=== PATIENT | female | born 1965 | race Caucasian/White ===

== ENCOUNTER → 2017-01-23 | Outpatient (CLI) | payer OTHER ==
[~2017-01-23] MED LIST: ASPIRIN EC325 M1 PO; ESTRADIOL 1 MG T1 M1 PO; NOHOMEMEDICATIONS; UNICOMPLEX M TA1 TA1 PO
== END ==
LOC: RAD 12:59
DX: Z12.31 Encounter for screening mammogram for malignant neoplasm of breast (principal)

== ENCOUNTER → 2017-06-09 | Outpatient (CLI) | payer OTHER | LOC: RAD 13:12 | DX: M79.641 Pain in right hand (principal) ==

== ENCOUNTER → 2018-01-23 | Outpatient (CLI) | payer OTHER | LOC: RAD 07:48 | DX: Z12.31 Encounter for screening mammogram for malignant neoplasm of breast (principal) ==

== ENCOUNTER → 2019-01-08 | Outpatient (CLI) | payer OTHER ==
[~2019-01-08] MED LIST changes: +FLUTICASONE PRO16 GM NASAL
== END ==
LOC: RAD 01:58
DX: Z12.31 Encounter for screening mammogram for malignant neoplasm of breast (principal)

== ENCOUNTER → 2019-01-11 | Outpatient (CLI) | payer OTHER ==
[~2019-01-11] VITALS: Ht 154.9 cm; Wt 56.2 kg
== END | disposition home or self-care (01) ==
LOC: GI
DX: Z12.11 Encounter for screening for malignant neoplasm of colon (principal); K64.8 Other hemorrhoids; I48.91 Unspecified atrial fibrillation; F17.210 Nicotine dependence, cigarettes, uncomplicated; Z85.828 Personal history of other malignant neoplasm of skin; Z90.711 Acquired absence of uterus with remaining cervical stump; Z98.890 Other specified postprocedural states; Z79.899 Other long term (current) drug therapy; Z79.01 Long term (current) use of anticoagulants; Z87.01 Personal history of pneumonia (recurrent)
CPT/HCPCS: 62110; 62900

== ENCOUNTER → 2019-05-05 | Outpatient (CLI) | payer OTHER | LOC: ULTRA 08:11 | DX: I15.0 Renovascular hypertension (principal) ==

== ENCOUNTER → 2019-05-21 | Outpatient (CLI) | payer OTHER | LOC: NUC 07:28 | DX: M85.89 Other specified disorders of bone density and structure, multiple sites (principal); Z78.0 Asymptomatic menopausal state ==

== ENCOUNTER → 2020-01-19 | Outpatient (CLI) | payer OTHER | LOC: RAD 08:40 | PROVIDERS: ATTEND Family Medicine | DX: Z12.31 Encounter for screening mammogram for malignant neoplasm of breast (principal); N64.89 Other specified disorders of breast ==

== ENCOUNTER → 2020-01-24 | Outpatient (CLI) | payer OTHER | LOC: CAT 07:46 → MRI 09:43 | PROVIDERS: ATTEND Family Medicine | DX: H57.12 Ocular pain, left eye (principal); R51.9 Headache, unspecified ==

== ENCOUNTER → 2020-02-02 | Outpatient (CLI) | payer OTHER | LOC: BC 14:36 | PROVIDERS: ATTEND Radiology Diagnostic Radiology | DX: R92.1 Mammographic calcification found on diagnostic imaging of breast (principal) ==

== ENCOUNTER → 2020-02-22 | Outpatient (CLI) | payer OTHER ==
--- NOTE | 2020-02-24 18:07 | PATH ---
[facility] [address] [place] [address] PATHOLOGY RPT PROCEDURE Name: ODELL VO Leonela Room #: REG [facility]..#: [id number] Admission: 02/22/20 Date of : 69 Discharge: Report #: [id number] Path Case #: [id number] [facility] Accession Number: [id number] . 01 Material submitted: . breast - RIGHT BREAST MEDIAL CENTRAL CALCIFICATIONS. Modifiers: right, medial, central . 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 - Background of proliferative fibrocystic changes including focal fibroadenomatoid changes. - Negative for invasive carcinoma. (IUV:winterizer; 02/24/2020) MBR 02/24/2020 1802 Local . 02 Comment: Co-review: Dr. Ramsey Blackburn. . Findings of this case are telephoned to miss Jennings in our breast center at 10:52 a.m. on 02/24/2020. . Block A1 is sent for ER and IL, the results of this will be reported in an addendum to follow. . (IUV:winterizer; 02/24/2020) . 02 Electronically signed: . Kathia Evans MD, Pathologist NPI- [id number] . 01 Gross description: . The specimen is received in formalin, labeled "Odell Vo". No source is listed on the container. The source is listed on the requisition as, "right medial central". Received are multiple needle cores of fibrofatty tissue measuring 4.3 x 3.8 x 0.7 cm in aggregate dimensions. Also received within the container is a plastic cassette containing multiple needle cores measuring 1.8 x 1.2 x 0.3 cm in aggregate dimensions. The suspect tissue is transferred to cassette A1, and the remainder of the specimen is submitted in cassettes A2 through A5. The cold ischemic time is 3 minutes. The total formalin fixation time is 27 hours and 57 minutes. (CAA; 02/23/2020) QAC/QAC 02/23/2020 1049 Local . 02 [place] [address] PATHOLOGY RPT PROCEDURE Name: ODELL VO Room #: REG CLI Lisa#: [id number] Admission: 02/22/20 Date of : 69 Discharge: Report #: [id number] Path Case #: [id number] Pathologist provided ICD-10: D05.11, N60.11 . 02 CPT . 302350 Specimen Comment: A courtesy copy of this report has been sent to [phone] Specimen Comment: [phone] Specimen Comment: Report sent to ,DR COSTA / DR RADFORD Performed at: [address], [place] [id number] MD Pedro Sepulveda MD Phone: [phone] Performed at: [address] [id number] MD Kathia Evans MD Phone: [phone]
== END | disposition home or self-care (01) ==
LOC: BC 02-15 09:40
PROVIDERS: ATTEND Radiology Diagnostic Radiology
DX: D05.11 Intraductal carcinoma in situ of right breast (principal); N60.11 Diffuse cystic mastopathy of right breast; R92.1 Mammographic calcification found on diagnostic imaging of breast; Z79.899 Other long term (current) drug therapy

== ENCOUNTER → 2020-04-14 | Outpatient (CLI) | payer OTHER | LOC: MRI 09:45 | PROVIDERS: ATTEND Radiology Radiation Oncology | DX: C50.911 Malignant neoplasm of unspecified site of right female breast (principal); Z98.890 Other specified postprocedural states ==

== ENCOUNTER → 2020-04-14 | Outpatient (CLI) | payer OTHER | LOC: LAB 11:08 | PROVIDERS: ATTEND Family Medicine | DX: Z20.828 Contact with and (suspected) exposure to other viral communicable diseases (principal) ==

== ENCOUNTER → 2020-05-30 | Outpatient (CLI) | payer OTHER | LOC: LAB 14:56 | PROVIDERS: ATTEND Internal Medicine | DX: Z00.00 Encounter for general adult medical examination without abnormal findings (principal) ==

== ENCOUNTER → 2020-06-07 | Outpatient (CLI) | payer OTHER ==
[2020-06-07 10:12] LABS: ABSOLUTE NEUTROPHILS 2.7 thou/uL (1.4-8.2); BASOPHILS 0.6 % (0.0-2.0); EOSINOPHILS 2.1 % (0.0-3.0); HEMATOCRIT 37.7 % (37.0-47.0); HEMOGLOBIN 12.6 gm/dL (12.0-15.0); LYMPHOCYTES 22.8 % (24.0-44.0); MCHC 33.4 g/dL (28.0-37.0); MONOCYTES 7.7 % (1.0-8.0); PLATELET COUNT 266 thou/uL (150-400); POLYS 66.8 % (36.0-66.0); RDW 13.3 % (10.5-14.5)
[2020-06-07 10:31] LABS: ALBUMIN 3.8 g/dL (3.4-5.0); ANION GAP 7 mmol/L (7-16); BUN 11 mg/dL (7-18); CALCIUM 9.3 mg/dL (8.5-10.1); CHLORIDE 103 mmol/L (98-107); CHOLESTEROL 243 mg/dL (<200); CO2 29 mmol/L (21-32); CREATININE 1.1 mg/dL (0.6-1.0); GLUCOSE 139 mg/dL (74-106); HDL CHOLESTEROL 124 mg/dL (>40); LDL CHOLESTEROL 108 mg/dL (<100); POTASSIUM 3.9 mmol/L (3.5-5.1); SGOT 25 U/L (15-37); SGPT 40 U/L (30-65); SODIUM 139 mmol/L (136-145); TOTAL BILIRUBIN 0.5 mg/dL (0.2-1.0); TOTAL PROTEIN 6.7 g/dL (6.4-8.2); TRIGLYCERIDE 57 mg/dL (<150); VLDL 11 mg/dL (<40)
== END ==
LOC: LAB 09:10
PROVIDERS: ATTEND Family Medicine
DX: Z00.00 Encounter for general adult medical examination without abnormal findings (principal)

== ENCOUNTER → 2020-06-16 | Outpatient (CLI) | payer OTHER | LOC: ULTRA 12:25 | PROVIDERS: ATTEND Surgery | DX: M79.18 Myalgia, other site (principal) ==

== ENCOUNTER → 2020-08-01 | Outpatient (CLI) | payer OTHER | LOC: ULTRA 14:38 | PROVIDERS: ATTEND Nurse Practitioner | DX: R19.03 Right lower quadrant abdominal swelling, mass and lump (principal); M71.20 Synovial cyst of popliteal space [Baker], unspecified knee ==

== ENCOUNTER → 2020-11-14 | Outpatient (CLI) | payer OTHER | LOC: MRI 07:44 → BC 13:34 | PROVIDERS: ATTEND Surgery | DX: C50.911 Malignant neoplasm of unspecified site of right female breast (principal); N64.89 Other specified disorders of breast ==

== ENCOUNTER → 2020-12-18 | Outpatient (CLI) | payer OTHER ==
[2020-12-18 12:11] LABS: BASOPHILS 0.5 % (0.0-2.0); EOSINOPHILS 1.1 % (0.0-3.0); HEMOGLOBIN 13.1 gm/dL (12.0-15.0); LYMPHOCYTES 28.6 % (24.0-44.0); MCH 34.9 pg (26.0-34.0); MCHC 34.4 g/dL (28.0-37.0); MCV 101.3 fL (80.0-100.0); PLATELET COUNT 253 thou/uL (150-400); POLYS 61.8 % (36.0-66.0); RBC 3.75 mil/uL (4.20-5.00); RDW 12.6 % (10.5-14.5); WBC 4.8 thou/uL (4.0-11.0)
[2020-12-18 12:15] LABS: POTASSIUM 4.2 mmol/L (3.5-5.1); TOTAL BILIRUBIN 0.8 mg/dL (0.2-1.0); TOTAL PROTEIN 6.9 g/dL (6.4-8.2)
== END ==
LOC: LAB 11:14
PROVIDERS: ATTEND Family Medicine
DX: I49.8 Other specified cardiac arrhythmias (principal)

== ENCOUNTER → 2021-01-16 | Outpatient (CLI) | payer OTHER | LOC: RAD 08:18 | PROVIDERS: ATTEND Internal Medicine | DX: C50.111 Malignant neoplasm of central portion of right female breast (principal); N63.10 Unspecified lump in the right breast, unspecified quadrant; R92.8 Other abnormal and inconclusive findings on diagnostic imaging of breast ==

== ENCOUNTER → 2021-02-06 | Outpatient (CLI) | payer OTHER ==
[~2021-02-06] MED LIST changes: +ASA81BEC PO; +CALCIUM 600 +1 EA11 PO; +LISINOPRIL10 MG PO; +NOLVADEX 10MG T10 M1 PO; +TOPROL XL50 MG PO; +TRAZODONE HCL50 MG PO; +VITAMIN D-40010 MCG PO; +XANAX 0.5 MG0.5 M1 PO
== END ==
LOC: SJCVCIMAG 07:23
PROVIDERS: ATTEND Internal Medicine Cardiovascular Disease
DX: I34.0 Nonrheumatic mitral (valve) insufficiency (principal); I49.3 Ventricular premature depolarization; I42.0 Dilated cardiomyopathy; I10 Essential (primary) hypertension; I25.10 Atherosclerotic heart disease of native coronary artery without angina pectoris; Z85.3 Personal history of malignant neoplasm of breast; Z87.891 Personal history of nicotine dependence; Z72.89 Other problems related to lifestyle; Z79.899 Other long term (current) drug therapy; Z82.49 Family history of ischemic heart disease and other diseases of the circulatory system

== ENCOUNTER → 2021-02-09 | Outpatient (CLI) | payer OTHER ==
[~2021-02-09] MED LIST changes: -ASA81BEC PO; -CALCIUM 600 +1 EA11 PO; -LISINOPRIL10 MG PO; -NOLVADEX 10MG T10 M1 PO; -TOPROL XL50 MG PO; -TRAZODONE HCL50 MG PO; -VITAMIN D-40010 MCG PO; -XANAX 0.5 MG0.5 M1 PO
== END ==
LOC: CAT 07:05
PROVIDERS: ATTEND Internal Medicine Cardiovascular Disease
DX: Z13.6 Encounter for screening for cardiovascular disorders (principal); E78.00 Pure hypercholesterolemia, unspecified; I25.10 Atherosclerotic heart disease of native coronary artery without angina pectoris

== ENCOUNTER → 2021-02-16 | Outpatient (CLI) | payer OTHER ==
[~2021-02-16] VITALS: Ht 154.9 cm; Wt 57.3 kg
[~2021-02-16] MED LIST changes: +ASA81BEC PO; +CALCIUM 600 +1 EA11 PO; +LISINOPRIL10 MG PO; +NOLVADEX 10MG T10 M1 PO; +TOPROL XL50 MG PO; +TRAZODONE HCL50 MG PO; +VITAMIN D-40010 MCG PO; +XANAX 0.5 MG0.5 M1 PO
[2021-02-16 07:39] VITALS: BP 129/66
[2021-02-16 08:00] LABS: HEMATOCRIT 36.5 % (37.0-47.0); HEMOGLOBIN 12.1 gm/dL (12.0-15.0); MCH 33.3 pg (26.0-34.0); MCHC 33.1 g/dL (28.0-37.0); MCV 100.7 fL (80.0-100.0); RBC 3.63 mil/uL (4.20-5.00); WBC 4.1 thou/uL (4.0-11.0)
[2021-02-16 08:04] LABS: CALCIUM 8.5 mg/dL (8.5-10.1); POTASSIUM 4.2 mmol/L (3.5-5.1)
--- NOTE | 2021-02-16 08:05 | EKG ---
[place] [address] [facility] [place] [address] ELECTROCARDIOGRAM REPORT Name: AUGUST VO JIHAN Room #: REG [facility]#: [id number] Admission: 02/16/21 Attend Phys: Humberto Gresham MD, Discharge: Date of : 69 Report #: [id number] [facility] Test Date: 2021-02-16 Test Time: 07:40:11 Pat Name: AUGUST VO Department: Room: Gender: F Supervisor [employer]: FSCHWALBE : 1965 Requested By: Humberto Gresham Order Number: [id number] MD: Sy Torres Measurements Intervals [place] Rate: 46 P: 42 NM: 142 QRS: -15 QRSD: 107 T: -65 QT: 546 QTc: 478 Interpretive Statements Sinus bradycardia Borderline left axis deviation Abnormal T, probable ischemia, inferior leads Compared to ECG 06/16/2016 05:48:10 T-wave abnormality now present Electronically Signed On 02-16-2021 8:05:09 CHILD CARE AIDE by Sy Torres [email or web address] <ELECTRONICALLY SIGNED> By: Sy Torres MD, [facility] 02/16/21 08 9 Sy Torres MD, [facility] /EPI
--- NOTE | 2021-02-16 16:50 | CATHLAB ---
[facility] [place] [address] [address] [place] [address] INVASIVE PROCEDURE REPORT Name: AUGUST VO JIHAN Room #: REG [facility] ZhouWilli#: [id number] Admission: 02/16/21 Attend Phys: Humberto Gresham MD, Discharge: Date of : 69 Report #: [id number] THIS REPORT FOR: cc: Stanley Gardner MD, Neal A. MD Mancuso, Gerald M. MD [facility] ~ APPROVED REPORT Study performed: 02/16/2021 07:58:07 Patient Details The patient is a 55 year-old female Event Personnel Humberto Gresham [employer] Tech, Flora Gonzalez, Deepali Levine RN RN, Marianela Kang RTR, PENSION EXAMINER Scrub Procedures Performed Art Access - R femoral artery* Right and Left Heart Cath w/or w/o Coronarie [id number] [facility] 67147 Initial Mod Sed Same Phys/QHP Gr5y 083193 65438 Mod Sed Same Phys/QHP Ea 578488 Hemostasis w/ Mynx Indication Chest pain Procedure Narrative The Right Groin^ was infiltrated with subcutaneous anesthesia. A PINNACLE 6FR Sheath #[id number] sheath was inserted into the RFA 6F^. Coronary angiography was performed using coronary diagnostic catheters. The right coronary system was accessed and visualized with a JR4 catheter. The left coronary system was accessed and visualized with a JL4 catheter. The left ventricle was accessed and visualized with a STR PIG catheter. There was no hematoma. Intraoperative Conscious Sedation Sedation start time: 844 Case end Time: 924 Fentanyl 100 mcg Versed 3 mg Fluoro Time: 2.26 minutes Dose: DAP 1248.40 cGycm2 123 mGy Contrast Type and Amount: Omnipaque 70 ml [facility] [place] [address] INVASIVE PROCEDURE REPORT Name: AUGUST VO [facility] [id number] Admission: 02/16/21 Attend Phys: Humberto Gresham, Discharge: Date of : 69 Report #: [id number] Hemodynamics The right atrial mean pressure is 8 mmHg. The right ventricular pressure is 28/4 mmHg. The pulmonary artery pressure is 27/1 mmHg with a mean of 16 mmHg. The mean pulmonary capillary wedge pressure is 12 mmHg. The aortic pressure is 140/43 mmHg with a mean of 41 mmHg. The left ventricular pressure is 137/-2 mmHg with a mean of mmHg. The left ventricular end diastolic pressure is 15 mmHg. The cardiac output using thermo method is 4.30 L/min. The cardiac index using thermo method is 2.77 L/min/m2. Conclusion #1 Successful right heart catheterization with cardiac output by thermodilution. See above hemodynamics. #2 left main widely patent giving rise to LAD and circumflex. #3 LAD extends to the apex is a small vessel in the distal third no occlusive disease. #4 circumflex OM nondominant widely patent. #5 dominant right coronary artery widely patent #6 mild left ventricular dilatation moderate global hypokinesis EF 35% range Recommendations and plan: Continue aggressive risk factor modification. Relative fluid and sodium restriction. Follow-up will be scheduled in 2 to 3 weeks. <ELECTRONICALLY SIGNED> By: Humberto Gresham MD, FACC 02/16/211649 49 49 Humberto Gresham MD, FACC /INF
== END | disposition home or self-care (01) ==
LOC: CATH 06:31
PROVIDERS: ATTEND Internal Medicine Cardiovascular Disease
DX: R07.9 Chest pain, unspecified (principal); I42.9 Cardiomyopathy, unspecified; I10 Essential (primary) hypertension; I48.91 Unspecified atrial fibrillation; Z98.890 Other specified postprocedural states; Z79.899 Other long term (current) drug therapy; Z79.01 Long term (current) use of anticoagulants; Z82.49 Family history of ischemic heart disease and other diseases of the circulatory system; Z90.711 Acquired absence of uterus with remaining cervical stump; Z87.891 Personal history of nicotine dependence

== ENCOUNTER → 2021-02-19 | Outpatient (CLI) | payer OTHER | LOC: SJCVCIMAG 14:22 | PROVIDERS: ATTEND Internal Medicine Cardiovascular Disease | DX: R10.30 Lower abdominal pain, unspecified (principal); R22.9 Localized swelling, mass and lump, unspecified; I10 Essential (primary) hypertension; I47.1 Supraventricular tachycardia; J20.9 Acute bronchitis, unspecified; Z79.899 Other long term (current) drug therapy ==